=== PATIENT | female | born 1945 | race Caucasian/White ===

== ENCOUNTER → 2019-12-13 | Outpatient (CLI) | payer MEDICARE, BC | END | disposition home or self-care (01) | LOC: ECT 11:54 | DX: F33.2 Major depressive disorder, recurrent severe without psychotic features (principal); F41.9 Anxiety disorder, unspecified; I10 Essential (primary) hypertension; E78.5 Hyperlipidemia, unspecified; Z86.010 Personal history of colon polyps; Z79.899 Other long term (current) drug therapy ==

== ENCOUNTER 2019-12-18 05:31 | Outpatient (RCR) | payer MEDICARE, BC ==
[~2019-12-18] VITALS: Ht 156.5 cm; Wt 50.8 kg
[2019-12-18] MEDS ORDERED: Labetalol 5mg/ml 20ml vial IV ONE (05:32)
[2019-12-18] MEDS ORDERED: Succinylcholine 20mg/ml 10ml vial ONE ×3 (05:32→06:00)
[2019-12-18] MEDS ORDERED: Methohexital Sodium Syr 100mg/10ml IVP ONE ×3 (05:32→06:00)
[2019-12-18] MEDS ORDERED: NS 500ML ONE ×3 (05:32→06:00)
[2019-12-18 10:57] VITALS: BP 150/93
[2019-12-18 11:00] VITALS: BP 150/93
[2019-12-18 11:14] VITALS: BP 129/67
[2019-12-18] MEDS ORDERED: Atropine Sulfate 0.4mg/ml inj IVP PRN (11:14)
[2019-12-18] MEDS ORDERED: Lidocaine 2% 100mg/5ml Carp IV PRN (11:14)
[2019-12-18 11:19] VITALS: BP 128/74
[2019-12-18 11:24] VITALS: BP 149/83
[2019-12-18 11:29] VITALS: BP 155/75
[2019-12-20 11:19] VITALS: BP 143/87
[2019-12-20 11:35] VITALS: BP 142/79
[2019-12-20 11:40] VITALS: BP 140/85
[2019-12-20 11:45] VITALS: BP 140/86
[2019-12-20 11:50] VITALS: BP 129/83
[2019-12-22 10:58] VITALS: BP 143/73
[2019-12-22 11:15] VITALS: BP 132/68
[2019-12-22 11:20] VITALS: BP 122/67
[2019-12-22 11:25] VITALS: BP 127/72
[2019-12-22 11:30] VITALS: BP 121/67
[2019-12-25] MEDS ORDERED: Succinylcholine 20mg/ml 10ml vial ONE (09:00)
[2019-12-25] MEDS ORDERED: NS 500ML ONE (09:00)
[2019-12-25] MEDS ORDERED: Labetalol 5mg/ml 20ml vial IV ONE (09:00)
[2019-12-25] MEDS ORDERED: Methohexital Sodium Syr 100mg/10ml IVP ONE (09:00)
[2019-12-25 11:31] VITALS: BP 157/87
[2019-12-25 11:49] VITALS: BP 153/68
[2019-12-25 11:54] VITALS: BP 135/68
[2019-12-25 11:59] VITALS: BP 129/70
[2019-12-25 12:04] VITALS: BP 138/56
[2019-12-29] MEDS ORDERED: Succinylcholine 20mg/ml 10ml vial ONE (06:00)
[2019-12-29] MEDS ORDERED: Methohexital Sodium Syr 100mg/10ml IVP ONE (06:00)
[2019-12-29] MEDS ORDERED: NS 500ML ONE (06:00)
[2019-12-29 09:41] VITALS: BP 152/89
[2019-12-29 09:53] VITALS: BP 149/66
[2019-12-29 09:58] VITALS: BP 151/78
[2019-12-29 10:03] VITALS: BP 156/74
[2019-12-29 10:08] VITALS: BP 138/64
[2020-01-01] MEDS ORDERED: Succinylcholine 20mg/ml 10ml vial ONE (06:00)
[2020-01-01] MEDS ORDERED: NS 500ML ONE (06:00)
[2020-01-01] MEDS ORDERED: Methohexital Sodium Syr 100mg/10ml IVP ONE (06:00)
[2020-01-01 09:21] VITALS: BP 160/79
[2020-01-01 09:34] VITALS: BP 138/68
[2020-01-01 09:39] VITALS: BP 131/70
[2020-01-01 09:44] VITALS: BP 150/71
[2020-01-01 09:49] VITALS: BP 138/68
== END 2020-01-04 | disposition home or self-care (01) ==
LOC: ECT 05:31
DX: F33.2 Major depressive disorder, recurrent severe without psychotic features (principal); F41.9 Anxiety disorder, unspecified; I10 Essential (primary) hypertension; E78.5 Hyperlipidemia, unspecified; Z86.010 Personal history of colon polyps
CPT/HCPCS: 90870; J0330; J7040

== ENCOUNTER 2020-01-05 07:25 | Outpatient (RCR) | payer MEDICARE, BC ==
[~2020-01-05] VITALS: Ht 156.5 cm; Wt 50.8 kg
[~2020-01-05 07:25] MED LIST: Methohexital Sodium Syr 100mg/10ml IVP ONE; NS 500ML ONE; Succinylcholine 20mg/ml 10ml vial ONE
[2020-01-05] MEDS ORDERED: NS 500ML ONE ×3 (07:26)
[2020-01-05] MEDS ORDERED: Labetalol 5mg/ml 20ml vial IV ONE (07:26)
[2020-01-05] MEDS ORDERED: Methohexital Sodium Syr 100mg/10ml IVP ONE ×3 (07:26)
[2020-01-05] MEDS ORDERED: Succinylcholine 20mg/ml 10ml vial ONE ×3 (07:26)
[2020-01-05 10:15] VITALS: BP 160/84
[2020-01-05] MEDS ORDERED: Atropine Sulfate 0.4mg/ml inj IVP PRN (10:39)
[2020-01-05] MEDS ORDERED: Lidocaine 2% 100mg/5ml Carp IV PRN (10:39)
[2020-01-05 10:40] VITALS: BP 146/76
[2020-01-05 10:45] VITALS: BP 140/81
[2020-01-05 10:50] VITALS: BP_SYST 139; BP_SYST 150; BP_DIAS 59; BP_DIAS 71
[2020-01-10 10:23] VITALS: BP 155/86
[2020-01-10 10:38] VITALS: BP 123/69
[2020-01-10 10:43] VITALS: BP 141/93
[2020-01-10 10:48] VITALS: BP 120/74
[2020-01-10 10:53] VITALS: BP 133/80
== END 2020-02-04 | disposition home or self-care (01) ==
LOC: ECT 07:25
DX: F33.2 Major depressive disorder, recurrent severe without psychotic features (principal)
CPT/HCPCS: 90870; J0330; J7040